=== PATIENT | female | born 1995 | race Two or more races ===

== ENCOUNTER 2019-05-12 16:30 | Inpatient (IN) | payer MEDICAID ==
[~2019-05-12] VITALS: Ht 157.5 cm; Wt 70.3 kg
[2019-05-12] MEDS ORDERED: FAMOTIDINE 20MG TABLET PO ONE (17:00)
[2019-05-12] MEDS ORDERED: ONDANSETRON 4MG ODT PO ONE (17:00)
[2019-05-12] MEDS ORDERED: MAGNESIUM/ALUMINUM HYDROXIDE/SIMETHICONE 30ML UDC PO ONE (17:00)
[2019-05-12 17:39] LABS: BASOPHILS % 0.8 % (0.0-2.0); EOSINOPHILS % 0.6 % (0.0-5.0); HEMATOCRIT. 32.9 % (36.0-48.0); HEMOGLOBIN. 11.1 g/dL (12.0-16.0); LYMPHOCYTES % 14.3 % (20.0-50.0); MEAN CORPUSCULAR HEMOGLOBIN 28.7 pg (28.0-32.0); MEAN CORPUSCULAR VOLUME 84.7 fL (81.0-99.0); MEAN PLATELET VOLUME 10.7 fl (7.4-10.4); MONOCYTES % 7.3 % (2.0-8.0); PLATELET 212 x1000/uL (130-400); RED BLOOD CELL COUNT 3.88 mill/uL (4.2-5.4); RED CELL DISTRIBUTION WIDTH 13.5 % (11.6-14.6)
[2019-05-12 17:44] LABS: INR 0.9; PROTHROMBIN TIME 9.8 sec (9.6-11.0)
[2019-05-12 17:48] LABS: CHLORIDE 106 mEq/L (98-107)
[2019-05-12 19:47] LABS: CLARITY URINE CLEAR (CLEAR); KETONES URINE 2+ (NEGATIVE); LEUKOCYTE ESTERASE URINE 1+ (NEGATIVE); NITRITE URINE NEGATIVE (NEGATIVE); OCCULT BLOOD URINE NEGATIVE (NEGATIVE); PROTEIN URINE 2+ (NEGATIVE); SPECIFIC GRAVITY URINE 1.027 (1.005-1.030)
[2019-05-12 19:51] LABS: COLOR URINE DARK YELLOW (YELLOW)
[2019-05-12 23:54] LABS: BASOPHILS % 0.5 % (0.0-2.0); EOSINOPHILS % 0.9 % (0.0-5.0); HEMATOCRIT. 32.1 % (36.0-48.0); HEMOGLOBIN. 10.9 g/dL (12.0-16.0); LYMPHOCYTES % 17.3 % (20.0-50.0); MEAN CORPUSCULAR HEMOGLOBIN 28.7 pg (28.0-32.0); MEAN CORPUSCULAR VOLUME 84.9 fL (81.0-99.0); MEAN PLATELET VOLUME 10.9 fl (7.4-10.4); MONOCYTES % 8.5 % (2.0-8.0); NEUTROPHILS % 72.8 % (40.0-76.0); PLATELET 204 x1000/uL (130-400); RED BLOOD CELL COUNT 3.78 mill/uL (4.2-5.4); RED CELL DISTRIBUTION WIDTH 13.5 % (11.6-14.6)
[2019-05-13 00:01] LABS: CHLORIDE 104 mEq/L (98-107)
[2019-05-13 00:13] LABS: D-DIMER 1.75 mg/L FEU (<0.50); INR 0.9; PARTIAL THROMBOPLASTIN TIME 26.4 sec (23.4-31.0); PROTHROMBIN TIME 9.7 sec (9.6-11.0)
[2019-05-13] MEDS ORDERED: MAGNESIUM 4 G PREMIX 100 ML IV NR (01:00)
[2019-05-13] MEDS ORDERED: BETAMETHASONE ACET/BETAMET 30 MG/5 ML VIAL IM NR (01:00)
[2019-05-13] MEDS: LACTATED RINGERS 1,000 ML IV SCH ×2 (02:14→03:56)
[2019-05-13] MEDS ORDERED: MAGNESIUM 2 G PREMIX 50 ML IV NR (03:00)
[2019-05-13] MEDS ORDERED: MAGNESIUM 20 G PREMIX (L & D) 500 ML IV SCH (03:36)
[2019-05-13 06:59] LABS: BASOPHILS % 0.3 % (0.0-2.0); EOSINOPHILS % 0.1 % (0.0-5.0); HEMATOCRIT. 32.8 % (36.0-48.0); LYMPHOCYTES % 12.4 % (20.0-50.0); MEAN CORPUSCULAR HEMOGLOBIN 28.5 pg (28.0-32.0); MEAN CORPUSCULAR VOLUME 85.3 fL (81.0-99.0); MEAN PLATELET VOLUME 10.2 fl (7.4-10.4); MONOCYTES % 2.2 % (2.0-8.0); PLATELET 211 x1000/uL (130-400); RED BLOOD CELL COUNT 3.84 mill/uL (4.2-5.4); RED CELL DISTRIBUTION WIDTH 13.6 % (11.6-14.6)
[2019-05-13 07:14] LABS: D-DIMER 1.9 mg/L FEU (<0.50); INR 0.9; PARTIAL THROMBOPLASTIN TIME 26.1 sec (23.4-31.0); PROTHROMBIN TIME 9.3 sec (9.6-11.0)
[2019-05-13 07:27] LABS: CHLORIDE 104 mEq/L (98-107)
[2019-05-13] MEDS ORDERED: BUTORPHANOL TARTRATE 2 MG/ML VIAL IM PRN (07:30)
[2019-05-13 10:54] LABS: FERRITIN 5 ng/mL (10-291)
[2019-05-13 11:05] LABS: HEPATITIS B SURFACE ANTIGEN NEGATIVE
[2019-05-13] MEDS ORDERED: GLYCOPYRROLATE 0.2 MG/ML 2ML VIAL ONE (14:11)
[2019-05-13] MEDS ORDERED: CEFAZOLIN SODIUM 1000MG/VIAL ONE (14:11)
[2019-05-13] MEDS ORDERED: MORPHINE SULFATE/PF 1MG/ML 10ML AMP ONE (14:11)
[2019-05-13] MEDS ORDERED: EPHEDRINE SULFATE 50MG/ML VIAL ONE (14:11)
[2019-05-13] MEDS ORDERED: ONDANSETRON HCL 4MG/2ML INJ ONE (14:11)
[2019-05-13] MEDS ORDERED: FENTANYL CITRATE/PF 50MCG/ML 2ML VIAL ONE (14:11)
[2019-05-13] MEDS ORDERED: OXYTOCIN 10 UNITS/ML 1ML ONE (14:11)
[2019-05-13] MEDS ORDERED: SODIUM CHLORIDE 0.9% 10ML VIAL ONE (14:12)
[2019-05-13] MEDS ORDERED: DIPHENHYDRAMINE 50MG/ML VIAL ONE (15:09)
[2019-05-13] MEDS ORDERED: KETOROLAC 60MG/2ML VIAL IM ONE (15:09)
[2019-05-13] MEDS ORDERED: BISACODYL 10MG SUPP PR PRN (15:45)
[2019-05-13] MEDS ORDERED: LANOLIN OINT 7GM TUBE TOP PRN (15:45)
[2019-05-13] MEDS ORDERED: DIPHENHYDRAMINE 25MG CAPSULE PO PRN (15:45)
[2019-05-13] MEDS ORDERED: ONDANSETRON HCL 4MG/2ML INJ IV PRN (15:45)
[2019-05-13] MEDS ORDERED: IBUPROFEN 400MG TABLET PO PRN (15:45)
[2019-05-13] MEDS ORDERED: OXYCODONE HCL/ACETAMINOPHEN 5/325MG TABLET PO PRN (15:45)
[2019-05-13] MEDS ORDERED: DIPHENHYDRAMINE 50MG/ML VIAL IV PRN (16:15)
[2019-05-13] MEDS ORDERED: BUTORPHANOL TARTRATE 2 MG/ML VIAL IV PRN (16:15)
[2019-05-13] MEDS ORDERED: NALOXONE HCL 0.4 MG/ML 1ML VIAL IV PRN (16:15)
[2019-05-13] MEDS: DEXT 5%/LR + PITOCIN 20UNITS/L 1,000 ML IV SCH (18:00)
[2019-05-13 20:15] VITALS: BP 121/69
[2019-05-13] MEDS: MAGNESIUM/ALUMINUM HYDROXIDE/SIMETHICONE 30ML UDC PO SCH (22:54)
[2019-05-13] MEDS: SIMETHICONE 80MG TABLET CHEW PO SCH (22:55)
[2019-05-13] MEDS: DOCUSATE SODIUM 100MG CAPSULE PO SCH (22:55)
[2019-05-14] VITALS: BP_SYST 119; BP_SYST 120; BP_DIAS 65; BP_DIAS 67
[2019-05-14] MEDS: DEXT 5%/LR + PITOCIN 20UNITS/L 1,000 ML IV SCH (00:31)
[2019-05-14 04:00] VITALS: BP_SYST 112; BP_DIAS 70; BP_DIAS 72
[2019-05-14] MEDS: KETOROLAC 30MG/ML VIAL IV SCH ×3 (04:23→12:46)
[2019-05-14 06:14] LABS: CLARITY URINE CLEAR (CLEAR); COLOR URINE DARK YELLOW (YELLOW); KETONES URINE 2+ (NEGATIVE); LEUKOCYTE ESTERASE URINE 1+ (NEGATIVE); NITRITE URINE NEGATIVE (NEGATIVE); OCCULT BLOOD URINE 3+ (NEGATIVE); PH URINE 5.5 (4.5-8.0); PROTEIN URINE TRACE (NEGATIVE); SPECIFIC GRAVITY URINE 1.022 (1.005-1.030)
[2019-05-14 06:33] LABS: *BARBITURATES SCREEN URINE NEGATIVE (NEGATIVE); *BENZODIAZEPINES SCREEN URINE NEGATIVE (NEGATIVE); *COCAINE SCREEN URINE NEGATIVE (NEGATIVE); METHADONE URINE SCREEN NEGATIVE (NEGATIVE)
[2019-05-14 06:34] LABS: CANNABINOID URINE SCREEN NEGATIVE (NEGATIVE); PHENCYCLIDINE URINE SCREEN NEGATIVE (NEGATIVE)
[2019-05-14 06:35] LABS: *AMPHETAMINES SCREEN URINE PRESUMTIVE POSITIVE (NEGATIVE); OPIATES URINE SCREEN PRESUMTIVE POSITIVE (NEGATIVE)
[2019-05-14 07:28] LABS: CHLORIDE 106 mEq/L (98-107)
[2019-05-14 07:30] LABS: HEMATOCRIT. 25.7 % (36.0-48.0); HEMOGLOBIN. 8.7 g/dL (12.0-16.0); MEAN CORPUSCULAR HEMOGLOBIN 28.6 pg (28.0-32.0); MEAN PLATELET VOLUME 10.7 fl (7.4-10.4); PLATELET 174 x1000/uL (130-400); RED BLOOD CELL COUNT 3.05 mill/uL (4.2-5.4); RED CELL DISTRIBUTION WIDTH 13.5 % (11.6-14.6)
[2019-05-14] MEDS: MAGNESIUM/ALUMINUM HYDROXIDE/SIMETHICONE 30ML UDC PO SCH ×4 (07:30→21:28)
[2019-05-14] MEDS: FERROUS SULFATE 325MG TABLET PO SCH ×3 (07:30→18:03)
[2019-05-14 08:00] VITALS: BP 102/54
[2019-05-14] MEDS: SIMETHICONE 80MG TABLET CHEW PO SCH ×4 (08:00→21:28)
[2019-05-14] MEDS: PRENATAL VIT/FE FUMARATE/FA TABLET PO SCH ×2 (09:00→12:46)
[2019-05-14 09:11] LABS: PLATELET ESTIMATE NORMAL
[2019-05-14 12:00] VITALS: BP 104/55
[2019-05-14] MEDS ORDERED: KETOROLAC 30MG/ML VIAL IV SCH (12:45)
[2019-05-14 16:00] VITALS: BP 111/66
[2019-05-14] MEDS: IBUPROFEN 800MG TABLET PO PRN (18:03)
[2019-05-14 19:30] VITALS: BP 113/60
[2019-05-14] MEDS: DOCUSATE SODIUM 100MG CAPSULE PO SCH (21:28)
[2019-05-15 04:00] VITALS: BP 120/86
[2019-05-15] MEDS: MAGNESIUM/ALUMINUM HYDROXIDE/SIMETHICONE 30ML UDC PO SCH ×4 (07:32→20:39)
[2019-05-15] MEDS: FERROUS SULFATE 325MG TABLET PO SCH ×3 (07:32→18:09)
[2019-05-15] MEDS: PRENATAL VIT/FE FUMARATE/FA TABLET PO SCH (07:33)
[2019-05-15] MEDS: SIMETHICONE 80MG TABLET CHEW PO SCH ×4 (07:33→20:39)
[2019-05-15] MEDS: IBUPROFEN 800MG TABLET PO PRN ×3 (07:33→20:53)
[2019-05-15 08:00] VITALS: BP 125/77
[2019-05-15 09:58] LABS: *AMPHETAMINES SCREEN URINE NEGATIVE (NEGATIVE); *BARBITURATES SCREEN URINE NEGATIVE (NEGATIVE); *BENZODIAZEPINES SCREEN URINE NEGATIVE (NEGATIVE); *COCAINE SCREEN URINE NEGATIVE (NEGATIVE)
[2019-05-15 09:59] LABS: CANNABINOID URINE SCREEN NEGATIVE (NEGATIVE); METHADONE URINE SCREEN NEGATIVE (NEGATIVE); OPIATES URINE SCREEN NEGATIVE (NEGATIVE); PHENCYCLIDINE URINE SCREEN NEGATIVE (NEGATIVE)
[2019-05-15 16:00] VITALS: BP 125/89
[2019-05-15 19:40] VITALS: BP_SYST 119; BP_SYST 126; BP_DIAS 77; BP_DIAS 82
[2019-05-15] MEDS: DOCUSATE SODIUM 100MG CAPSULE PO SCH (20:39)
[2019-05-16 00:01] VITALS: BP 134/76
[2019-05-16 04:00] VITALS: BP 121/83
[2019-05-16] MEDS: IBUPROFEN 800MG TABLET PO PRN (04:33)
[2019-05-16] MEDS: MAGNESIUM/ALUMINUM HYDROXIDE/SIMETHICONE 30ML UDC PO SCH (07:30)
[2019-05-16] MEDS: FERROUS SULFATE 325MG TABLET PO SCH (07:30)
[2019-05-16 08:00] VITALS: BP 132/81
[2019-05-16] MEDS: SIMETHICONE 80MG TABLET CHEW PO SCH (08:00)
[2019-05-16] MEDS: PRENATAL VIT/FE FUMARATE/FA TABLET PO SCH (09:00)
[2019-05-17 19:06] LABS: AMPHETAMINE CONF URINE Positive (.); OPIATES CONFIRMATION URINE Positive (.)
== END 2019-05-16 11:03 | disposition home or self-care (01) | DRG 540 ==
LOC: ER 16:30 → 8 EST LDRP 20:51 → 8EST 05-13 20:25
PROVIDERS: ADMIT Obstetrics & Gynecology; ATTEND Obstetrics & Gynecology
PROC: 10D00Z1 Extraction of Products of Conception, Low, Open Approach (ICD-10-PCS; principal; 2019-05-13)
DX: O26.62 Liver and biliary tract disorders in childbirth (principal); K92.0 Hematemesis; K83.1 Obstruction of bile duct; O60.14X0 Preterm labor third trimester with preterm delivery third trimester, not applicable or unspecified; O99.324 Drug use complicating childbirth; D72.810 Lymphocytopenia; O14.24 HELLP syndrome, complicating childbirth; O99.03 Anemia complicating the puerperium; O99.62 Diseases of the digestive system complicating childbirth; O99.12 Other diseases of the blood and blood-forming organs and certain disorders involving the immune mechanism complicating childbirth; J45.909 Unspecified asthma, uncomplicated; O99.52 Diseases of the respiratory system complicating childbirth; F15.10 Other stimulant abuse, uncomplicated; Z3A.33 33 weeks gestation of pregnancy; Z37.0 Single live birth
CPT/HCPCS: 36415; 71045; 76705; 76805; 76818; 80053; 80305; 80307; 80361; 81003; 82570; 82728; 83615; 83735; 84145; 84156; 84450; 84460; 84550; 85025; 85379; 85384; 86592; 86703; 86762; 86850; 86900; 86920; 87340; 88307; 99281; 99285; J0690; J0702; J1200; J1885; J2274; J2405; J2590; J3010; J3475; J3490; Q0162

== ENCOUNTER 2023-09-19 21:51 | Emergency (ER) | payer MEDICAID ==
[~2023-09-19] VITALS: Ht 157.5 cm; Wt 60.8 kg
[2023-09-19 21:59] VITALS: BP 143/95; PULSE 81; RESP 13; TEMP 98.6; O2SAT 100
[2023-09-19 23:33] LABS: BASOPHILS % 0.5 % (0.0-2.0); EOSINOPHILS % 4.4 % (0.0-5.0); HEMATOCRIT. 44.5 % (36.0-48.0); HEMOGLOBIN. 14.5 g/dL (12.0-16.0); LYMPHOCYTES % 26.1 % (20.0-50.0); MEAN CORPUSCULAR HEMOGLOBIN 30.5 pg (28.0-32.0); MEAN CORPUSCULAR HGB CONC 32.6 g/dL (31.0-37.0); MEAN CORPUSCULAR VOLUME 93.6 fL (81.0-99.0); MONOCYTES % 9.6 % (2.0-8.0); NEUTROPHILS % 59.4 % (40.0-76.0); PLATELET 203 x1000/uL (130-400); RED BLOOD CELL COUNT 4.75 mill/uL (4.2-5.4); RED CELL DISTRIBUTION WIDTH 13.9 % (11.6-14.6); WHITE BLOOD COUNT 7.1 x1000/uL (4.5-11.0)
[2023-09-19 23:40] LABS: CHLORIDE 105 mEq/L (98-107); POTASSIUM 3.6 mEq/L (3.5-5.1); SODIUM 137 mEq/L (136-145)
[2023-09-19 23:41] LABS: CARBON DIOXIDE 27 mEq/L (21-32)
[2023-09-19 23:42] LABS: CALCIUM 9.6 mg/dL (8.7-10.4)
[2023-09-19 23:46] LABS: CREATININE 0.7 mg/dL (0.6-1.0); GLUCOSE 85 mg/dL (70-105); UREA NITROGEN BLOOD 12 mg/dL (9-23)
[2023-09-19 23:48] LABS: ALANINE AMINOTRANSFERASE 20 IU/L (10-49); ALBUMIN 4.5 g/dL (3.2-4.8); ASPARTATE AMINOTRANSFERASE 21 IU/L (<34)
[2023-09-19 23:49] LABS: BILIRUBIN TOTAL 0.3 mg/dL (0.1-1.0)
[2023-09-20 00:09] LABS: B-HCG QUANTITATIVE 39878 mIU/mL (<3)
[2023-09-20 01:31] LABS: CLARITY URINE CLEAR (CLEAR); COLOR URINE YELLOW (YELLOW); GLUCOSE URINE NEGATIVE (NEGATIVE); KETONES URINE NEGATIVE (NEGATIVE); LEUKOCYTE ESTERASE URINE NEGATIVE (NEGATIVE); NITRITE URINE NEGATIVE (NEGATIVE); OCCULT BLOOD URINE 1+ (NEGATIVE); PH URINE 6.5 (4.5-8.0); PROTEIN URINE NEGATIVE (NEGATIVE); SPECIFIC GRAVITY URINE 1.007 (1.005-1.030); UROBILINOGEN URINE 0.2 E.U./dL (0.2-1.0)
[2023-09-20 02:06] LABS: BACTERIA URINE NONE SEEN; RBC URINE NONE SEEN /hpf (0-2); SQUAMOUS EPITHELIAL CELL URINE NONE SEEN /lpf (RARE/1+); WBC URINE NONE SEEN /hpf (0-2)
== END 2023-09-20 02:34 | disposition home or self-care (01) ==
LOC: ER 21:51
DX: O46.91 Antepartum hemorrhage, unspecified, first trimester (principal); J45.909 Unspecified asthma, uncomplicated; Z98.890 Other specified postprocedural states; Z3A.01 Less than 8 weeks gestation of pregnancy
CPT/HCPCS: 36415; 76801; 80053; 81003; 84702; 85025; 86850; 86900; 99284